=== PATIENT | female | born 1995 | race Caucasian/White ===

== ENCOUNTER 2021-03-01 05:42 | Emergency (ER) | payer OTHER ==
[2021-03-01 06:20] VITALS: BMI 18.3
[2021-03-01 07:48] VITALS: BP 102/64; PULSE 80
[2021-03-01 08:10] LABS: BASO % 0.3 % (0-2.0); EOS % 0.5 % (0-4.5); HEMATOCRIT 38.3 % (32.4-45.2); HEMOGLOBIN 13.3 GM/dL (10.7-15.3); LYMPH % 20.9 % (8-40); MCH 30.3 pg (25.7-33.7); MCHC 34.6 g/dl (32.0-36.0); MEAN CELL VOLUME 87.4 fl (80-96); MEAN PLT VOLUME 9.1 fl (7.5-11.1); MONO % 4.6 % (3.8-10.2); NEUT % 73.7 % (42.8-82.8); PLATELET COUNT 171 10^3/uL (134-434); RBC 4.38 M/mm3 (3.60-5.2); RDW 13.5 % (11.6-15.6); WHITE BLOOD COUNT 8.4 K/mm3 (4.0-10.0)
[2021-03-01 08:17] LABS: INR 0.98 (0.83-1.09); PROTHROMBIN TIME (PATIENT) 11.9 SEC (9.7-13.0)
[2021-03-01 08:20] LABS: ACTIVATED PTT 27.8 SECONDS (25.2-36.5)
[2021-03-01 08:26] LABS: CALCIUM 8.8 mg/dL (8.5-10.1)
[2021-03-01 08:27] LABS: ALBUMIN 3.7 g/dl (3.4-5.0); BLOOD UREA NITROGEN 10.3 mg/dL (7-18)
[2021-03-01 08:30] LABS: CREATININE 0.6 mg/dL (0.55-1.3)
[2021-03-01 08:32] LABS: BILIRUBIN,TOTAL 0.3 mg/dL (0.2-1)
[2021-03-01 08:44] LABS: TOT PROT 7.7 g/dl (6.4-8.2)
[2021-03-01 09:00] LABS: EPI CELLS >36 /uL (0-25.1); HYALINE CASTS 1 /uL (0-3.1); URINE APPEARANCE CLEAR; URINE BACTERIA 315 /uL (0-1359); URINE BILIRUBIN NEGATIVE (NEGATIVE); URINE COLOR YELLOW; URINE GLUCOSE (UA) NEGATIVE (NEGATIVE); URINE KETONE NEGATIVE (NEGATIVE); URINE LEUK ESTERASE 1+ (NEGATIVE); URINE NITRITE NEGATIVE (NEGATIVE); URINE PROTEIN NEGATIVE (NEGATIVE); URINE RBC 4 /uL (0-23.9); URINE UROBILINOGEN 0.2 mg/dL (0.2-1.0); URINE WBC 16 /uL (0-25.8)
[2021-03-01] MEDS ORDERED: RHO(D) IMMUNE GLOBULIN 1,500 UNIT DISP.SYRIN IM ONE (10:05)
[2021-03-01 10:49] VITALS: TEMP 98.6
== END 2021-03-01 11:30 | disposition home or self-care (01) ==
LOC: JER 05:42
PROC: 3E023GC Introduction of Other Therapeutic Substance into Muscle, Percutaneous Approach (ICD-10-PCS; principal; 2021-03-01)
DX: O26.851 Spotting complicating pregnancy, first trimester (principal); R10.2 Pelvic and perineal pain; Z3A.11 11 weeks gestation of pregnancy
CPT/HCPCS: 36415; 76801-TC; 80053; 81003; 84702; 85025; 85610; 85730; 86850; 86900; 86901; 86999; 87086; 99284-25; J1561

== ENCOUNTER 2021-09-16 08:50 | Inpatient (IN) | payer OTHER ==
[2021-09-16 10:32] LABS: BASO % 0.1 % (0-2.0); HEMATOCRIT 35.7 % (32.4-45.2); HEMOGLOBIN 12.6 GM/dL (10.7-15.3); LYMPH % 8.4 % (8-40); MCH 32.2 pg (25.7-33.7); MCHC 35.4 g/dl (32.0-36.0); MEAN CELL VOLUME 91.1 fl (80-96); MEAN PLT VOLUME 9.1 fl (7.5-11.1); MONO % 2.5 % (3.8-10.2); PLATELET COUNT 159 10^3/uL (134-434); RBC 3.92 M/mm3 (3.60-5.2); RDW 13.3 % (11.6-15.6); WHITE BLOOD COUNT 13.3 K/mm3 (4.0-10.0)
[2021-09-16 10:39] LABS: INR 0.9 (0.83-1.09); PROTHROMBIN TIME (PATIENT) 10.3 SEC (9.7-13.0)
[2021-09-16 10:41] LABS: ACTIVATED PTT 26.4 SECONDS (25.2-36.5)
[2021-09-16 10:56] VITALS: BMI 25.4
[2021-09-16 10:58] LABS: CALCIUM 8.8 mg/dL (8.5-10.1)
[2021-09-16 10:59] LABS: BLOOD UREA NITROGEN 8.9 mg/dL (7-18)
[2021-09-16 11:01] LABS: CREATININE 0.5 mg/dL (0.55-1.3)
[2021-09-16] MEDS ORDERED: BUPIVACAINE HCL/PF 0.25% (2.5MG/ML) 10 ML VIAL ONE (11:39)
[2021-09-16] MEDS ORDERED: FENTANYL/BUPIVACAINE/NS/PF - PCEA - 50 ML DISP.SYRIN EP ONE ×2 (11:55→15:42)
[2021-09-16] MEDS ORDERED: NALOXONE HCL 0.4 MG/ML VIAL IVPUSH PRN (12:02)
[2021-09-16] MEDS ORDERED: FENTANYL/BUPIVACAINE/NS/PF - PCEA - 50 ML DISP.SYRIN EP SCH (12:15)
[2021-09-16] MEDS ORDERED: ELECTROLYTE-148 SOLN 1,000 ML IV SCH (12:45)
[2021-09-16] MEDS ORDERED: LIDOCAINE HCL 1% PRESERVATIVE FREE - 30ML VIAL ONE (16:33)
[2021-09-16] MEDS ORDERED: OXYTOCIN 20 UNITS in 0.9% NS 20 UNIT/1,000 ML INFUS.BAG IV ONE (16:33)
[2021-09-16] MEDS ORDERED: BENZOCAINE 28 GM HEMORRHOIDAL OINTMENT TP PRN (18:42)
[2021-09-16] MEDS ORDERED: BENZOCAINE 20% 57 GM BOTTLE TP PRN (18:42)
[2021-09-16] MEDS ORDERED: ACETAMINOPHEN 325 MG TABLET (FP) PO PRN (18:42)
[2021-09-16] MEDS ORDERED: WITCH HAZEL 50% (TUCKS) 40 PAD/JAR PAD TP PRN (18:42)
[2021-09-16] MEDS ORDERED: BISACODYL 10 MG SUPP.RECT RC PRN (18:42)
[2021-09-16] MEDS ORDERED: OXYTOCIN 20 UNITS in 0.9% NS 20 UNIT/1,000 ML INFUS.BAG IV SCH (18:45)
[2021-09-16] MEDS: IBUPROFEN 600 MG TABLET (FP) PO PRN (20:55)
[2021-09-17] MEDS: IBUPROFEN 600 MG TABLET (FP) PO PRN ×2 (05:25→10:39)
[2021-09-17 08:32] LABS: BASO % 0.1 % (0-2.0); EOS % 0.1 % (0-4.5); HEMATOCRIT 29.2 % (32.4-45.2); HEMOGLOBIN 10.4 GM/dL (10.7-15.3); MCH 32.6 pg (25.7-33.7); MCHC 35.5 g/dl (32.0-36.0); MEAN CELL VOLUME 91.9 fl (80-96); MEAN PLT VOLUME 9.1 fl (7.5-11.1); MONO % 5.1 % (3.8-10.2); NEUT % 85.7 % (42.8-82.8); PLATELET COUNT 139 10^3/uL (134-434); RBC 3.18 M/mm3 (3.60-5.2); RDW 13.4 % (11.6-15.6); WHITE BLOOD COUNT 19.5 K/mm3 (4.0-10.0)
[2021-09-17 18:07] LABS: SARS-CoV-2 NAA Not Detected (Not Detected)
[2021-09-17] MEDS ORDERED: SENNOSIDES/DOCUSATE COMBO (SENNA PLUS) TABLET (UD) PO PRN (22:00)
[2021-09-18 10:14] VITALS: BP 104/62; PULSE 71; TEMP 98.8
[2021-09-18] MEDS: IBUPROFEN 600 MG TABLET (FP) PO PRN (10:16)
== END 2021-09-18 12:10 | disposition home or self-care (01) | DRG 560 ==
LOC: JDEL 08:50 → JLDR 09:35 → J3W 20:16
PROVIDERS: ADMIT Student in an Organized Health Care Education/Training Program; ATTEND Student in an Organized Health Care Education/Training Program
PROC: 10E0XZZ Delivery of Products of Conception, External Approach (ICD-10-PCS; principal; 2021-09-16)
PROC: 0KQM0ZZ Repair Perineum Muscle, Open Approach (ICD-10-PCS; 2021-09-16)
PROC: 0W8NXZZ Division of Female Perineum, External Approach (ICD-10-PCS; 2021-09-16)
DX: O70.1 Second degree perineal laceration during delivery (principal); O34.219 Maternal care for unspecified type scar from previous cesarean delivery; N85.8 Other specified noninflammatory disorders of uterus; Z3A.39 39 weeks gestation of pregnancy; Z37.0 Single live birth
CPT/HCPCS: 36415; 59409; 80048; 85025; 85461; 85610; 85730; 86780; 86850; 86900; 86901; 86999; C9803-CS; U0003; U0005

== ENCOUNTER 2025-02-25 11:19 | Emergency (ER) | payer OTHER ==
[2025-02-25 11:30] VITALS: BP 112/70; PULSE 72; RESP 18; TEMP 97.9; BMI 18.0
[2025-02-25 12:43] LABS: ABSOLUTE IMMATURE GRANULOCYTES 0.03 x10^3/uL (0.0-0.031); BASOPHILS # 0.02 x10^3/uL (0.01-0.08); EOSINOPHIL % 0.1 % (0.7-5.8); EOSINOPHILS # 0.01 x10^3/uL (0.04-0.36); MCHC 31.8 g/dl (32.2-35.5); MEAN CELL VOLUME 79.5 fl (79.4-94.8); MEAN PLT VOLUME 11.0 fl (9.4-12.3); MONOCYTE # 0.33 x10^3/uL (0.24-0.86); MONOCYTE % 4.3 % (4.7-12.5); RDW 14.6 % (12.1-16.5)
[2025-02-25 12:49] LABS: INR 1.05 (0.83-1.09); PROTHROMBIN TIME (PATIENT) 11.6 SEC (9.7-13.0)
[2025-02-25 12:52] LABS: ACTIVATED PTT 30.0 SECONDS (25.2-36.5)
[2025-02-25 13:20] LABS: GLUCOSE,RANDOM 92.0 mg/dL (74-106)
[2025-02-25 13:21] LABS: CO2 25.0 mmol/L (21-32); TOT PROT 8.5 g/dl (6.4-8.2)
[2025-02-25 13:23] LABS: ALK PHOS 80.0 U/L (40-150)
[2025-02-25 13:26] LABS: CREATININE 0.6 mg/dL (0.55-1.3); SGOT/AST 30.0 U/L (5-34); SGPT/ALT 34.0 U/L (0-55)
[2025-02-25 16:02] LABS: HCV DIAGNOSTIC IN-HOUSE W/RFLX NON-REACTIVE (NONREACTIVE); HIV INTERPRETATION NEGATIVE (NEGATIVE)
== END 2025-02-25 16:59 | disposition home or self-care (01) ==
LOC: JER 11:19
DX: R00.2 Palpitations (principal); R07.9 Chest pain, unspecified; R06.02 Shortness of breath; R42 Dizziness and giddiness; F41.9 Anxiety disorder, unspecified
CPT/HCPCS: 36415; 71045-TC-FY; 80053; 83735; 84443; 84484; 85025; 85610; 85730; 86803; 86850; 86900; 86901; 87389; 93005; 93010